=== PATIENT | female | born 1950 | race Caucasian/White ===

== ENCOUNTER 2025-03-02 09:41 | Day surgery (SDC) | payer MEDICARE, SELFPAY ==
--- NOTE | 2025-02-12 13:38 | CM ---
Demographics: confirmed
Living situation: lives alone
Support Person Post Operatively: Friend lives close by and will be available for assistance, patient's daughter will not be available.
History of
VN: no
SNF: no
Outpatient: [facility] scheduled for 03/04, patient hired a delivery route driver to assist with PT appointments
Has patient purchased required equipment: yes, walker x's 2
PCP: confirmed
Pharmacy: [facility]
Post Operative Discharge Plan: Plan for home, with friend, Outpatient PT.
[2025-02-16 11:56] LABS: Hematocrit 37.9 % (37.0-47.0); Hemoglobin 12.3 g/dL (12.0-16.0); Mean Corp Hgb Conc. 32.5 g/dL (33.0-37.0); Mean Corpuscular Volume 85.7 fL (81.0-99.0); Platelet Count 263 10^3/uL (130-400); Red Cell Dist. Width 14.7 % (11.5-14.5)
[2025-02-16 12:11] LABS: Glycohemoglobin (HgbA1c) 5.4 % (4.0-5.9)
[2025-02-16 12:28] LABS: ALT (SGPT) 14 U/L (0-35); AST (SGOT) 17 U/L (14-36); Albumin 4.3 g/dl (3.5-5.0); Alkaline Phosphatase 62 U/L (38-126); Blood Urea Nitrogen 27 mg/dl (7-17); Calcium 9.4 mg/dl (8.4-10.2); Carbon Dioxide 24 mmol/L (22-30); Chloride 107 mmol/L (98-107); Glucose 89 mg/dl (70-99); Potassium 4.8 mmol/L (3.5-5.1); Sodium 137 mmol/L (135-145); Total Protein 7.7 g/dl (6.3-8.2); eGFR > 60.00
[2025-02-16 13:50] VITALS: BMI 35.8
[2025-02-17 09:35] VITALS: BMI 35.8
[2025-02-26 09:22] VITALS: BMI 35.8
[2025-03-02] VITALS (15 sets, daily range): BP systolic 133–177; BP diastolic 57–99; PULSE 61; BMI 35.8
--- NOTE | 2025-03-02 09:09 | W.PN.UPDATE ---
Addendum entered and electronically signed by Kelly Ceballos PA-C 03/02/25 14:35:
Of note, patient is an early d/c candidate for 03/03/25
Original Note:
Update Note
Progress Note Update
R knee OA s/p R TKA w/ Dr Maier 03/02/25
- s/p L TKA, 2023, by Dr Fredrick Cee
DVT prophylaxis - ASA, b/l venous foot pumps
HTN - diet controlled - monitor BP
Pulmonary nodules
BOBBY, improving with intentional weight loss
Chronic dyspnea on exertion
- Of note, recent NST stable
- Monitor O2
- IS
- Decadron to aid in lung perfusion
- Add supplemental O2 HS
NIDDM per records, A1c 5.4 - monitor BS
- Will add SSI AC, low dose Lantus HS to accommodate for potential BS elevations while on Decadron for post-surgical inflammation (benefit of med outweighs risk)
- Diabetic carb controlled diet
- Will benefit from prophylactic abx upon d/c
GERD and previous gastric and duodenal ulcer - minimize NSAIDs
- Continue home Protonix, Pepcid
Ambulatory dysfunction with balance difficulties - on fall precautions
Peripheral neuropathy - add Gabapentin HS
Iron deficiency anemia - pre-op hgb stable - non-invasive hgb in AM
Hyperlipidemia
Mild LVH
Heart murmur associated w/ mild valvular disease
Chronic peripheral edema
Fatty liver disease
Status post gastric sleeve 2014
Vertigo
Degenerative disc disease with chronic low back pain
Raynaud's disease
Osteopenia
Vitamin D deficiency
Obesity, BMI 35.8
[2025-03-02] MEDS: CELEBREX 200 MG PO (10:19)
[2025-03-02] MEDS: TYLENOL 650 MG PO ×3 (10:19→19:30)
[2025-03-02] MEDS: NORMOSOL-R/PLASMALYTE-A 1000 IV ×2 (10:31→16:24)
[2025-03-02] MEDS: PROTONIX 40 MG PO (16:52)
[2025-03-02] MEDS: PEPCID 20 MG PO (16:52)
[2025-03-02] MEDS: NOVOLOG FLEXPEN-MODERATE RESISTANCE SC ×2 (16:52→17:34)
[2025-03-02] MEDS: ASPIRIN 325 MG PO (17:06)
--- NOTE | 2025-03-02 17:15 | PTCARENOTE ---
Pt arrived to [facility] s/p R TKA with spinal and block. Pt with numbness and decreased sensation to b/l Lower extremities. Right knee dressing with scant sanguineous drainage. Thigh high teds/ foot pumps on pt. Admission questions answered. Bed locked
ad in lowest position. Care ongoing.
[2025-03-02 17:28] LABS: Glucose - Point of Care 93 mg/dl (70-99)
[2025-03-02] MEDS: DECADRON 4 MG PO (19:30)
[2025-03-02] MEDS: COLACE 100 MG PO (19:30)
[2025-03-02] MEDS: ANCEF 5 IV (19:30)
[2025-03-02] MEDS: FLORASTOR 250 MG PO (19:30)
[2025-03-02] MEDS: SENOKOT 17.2 MG PO (19:31)
[2025-03-02] MEDS: BACTROBAN 2% OINTMENT 1 APPLIC NASAL (19:32)
[2025-03-02] MEDS: MAALOX 30 ML PO (20:00)
[2025-03-02 21:30] LABS: Glucose - Point of Care 270 mg/dl (70-99)
[2025-03-02] MEDS: LANTUS 0.05 UNITS SC (21:57)
[2025-03-02] MEDS: NEURONTIN 300 MG PO (21:57)
[2025-03-03] MEDS: TYLENOL PO (00:04)
[2025-03-03 03:33] VITALS: BP 116/72
[2025-03-03] MEDS: ANCEF 5 IV (04:27)
[2025-03-03] MEDS: TYLENOL 650 MG PO ×2 (04:28→08:00)
[2025-03-03] MEDS: ROXICODONE 5 MG PO (06:03)
[2025-03-03 07:00] VITALS: BP 146/79
[2025-03-03 07:41] LABS: Glucose - Point of Care 216 mg/dl (70-99)
[2025-03-03] MEDS: PEPCID 20 MG PO (07:59)
[2025-03-03] MEDS: SENOKOT 17.2 MG PO (07:59)
[2025-03-03] MEDS: COLACE 100 MG PO (07:59)
[2025-03-03] MEDS: FLORASTOR 250 MG PO (08:00)
[2025-03-03] MEDS: ASPIRIN 325 MG PO (08:00)
[2025-03-03] MEDS: DECADRON 4 MG PO (08:00)
[2025-03-03] MEDS: BACTROBAN 2% OINTMENT 1 APPLIC NASAL (08:00)
[2025-03-03] MEDS: PROTONIX 40 MG PO (08:00)
[2025-03-03 08:46] VITALS: BP 146/79; BP 161/89; PULSE 82
--- NOTE | 2025-03-03 08:58 | CM ---
it project manager met with patient this am and reviewed discharge plan, patient lives alone and insists on returning to home alone, patient has a friend who will help her after discharge, patient's daughter has offered for patient to stay with her but
patient declined.
Plan is for patient to return to home and follow up with outpatient therapies at [facility], patient has hired her own transportation to outpatient rehab.
Home today outpatient therapy at [facility]
--- NOTE | 2025-03-03 09:28 | W.PN.ORTHO ---
Today's Communication / Plan
-
Pt did well w/ both PT and OT overall.
Will d/c this AM given clinical stability.
Assessment
.
Distal Motor Intact: Yes
Dressing:
Small areas of old bleeding along incision line.
Assessment:
R knee OA s/p R TKA w/ Dr Maier 03/02/25
- s/p L TKA, 2023, by Dr Fredrick Cee
- EARLY D/C
DVT prophylaxis - ASA, b/l venous foot pumps
HTN - diet controlled - BPs overall stable during admission
- Ensured adequate pain control to avoid significant BP elevations
Pulmonary nodules
BOBBY, improving with intentional weight loss
Chronic dyspnea on exertion
- Of note, recent NST stable
- O2 stable on RA w/ measures below
- IS
- Decadron to aid in lung perfusion
- Added supplemental O2 HS
NIDDM per records, A1c 5.4 - BS readings mildly elevated d/t surgical stress and steroid use. BS readings expected to improve w/ continuation of diabetic, carb controlled diet
- Did add SSI AC, low dose Lantus HS during admission to accommodate for potential BS elevations while on Decadron for post-surgical inflammation (benefit of med outweighs risk)
- Will benefit from prophylactic abx upon d/c
GERD and previous gastric and duodenal ulcer - minimize NSAIDs
- Continue home Protonix, Pepcid
Ambulatory dysfunction with balance difficulties - on fall precautions
Peripheral neuropathy - added Gabapentin HS
Iron deficiency anemia - pre-op hgb stable - non-invasive hgb 12.8 POD 1
Hyperlipidemia
Mild LVH
Heart murmur associated w/ mild valvular disease
Chronic peripheral edema
Fatty liver disease
Status post gastric sleeve 2014
Vertigo
Degenerative disc disease with chronic low back pain
Raynaud's disease
Osteopenia
Vitamin D deficiency
Obesity, BMI 35.8
Plan
.
Surgery / Date: R TKA w/ Dr Maier 03/02/25
DVT Prophylaxis: Aspirin
Activity:
Out of bed.
PT/OT
Discharge Plan: Home w/ Outpatient PT
Subjective
.
.:
Patient resting comfortably in her chair.
R knee pain well controlled w/ current pain meds.
Denies any new significant complaints.
Eager for potential d/c today.
Vital Signs and Labs
.
Vital Signs and Labs:
Lab Results
02/16/25 11:24
02/16/25 11:24
Temp Pulse Resp BP Pulse Ox
98.4 F 82 16 146/79 94
03/03/25 07:00 03/03/25 07:00 03/03/25 07:00 03/03/25 07:00 03/03/25 07:00
Non-invasive Hgb result: 12.8
Physical Exam
-
HEENT: No pallor, cyanosis, or jaundice. Throat clear.
NECK: Supple. No JVD.
RESPIRATORY: Lungs clear to auscultation.
CVS: S1, S2 normal. RRR.�
ABDOMEN: Soft, non-tender. No distension.
EXTREMITIES: Expected post-surgical R knee edema. Strength equal, no calf pain with palpation/dorsiflexion. Calves soft.
DIETICIAN: AOx3. No focal deficits. information and data architect analyst grossly intact
[2025-03-03 09:32] VITALS: BP 161/89; PULSE 85
--- NOTE | 2025-03-03 09:37 | W.DS.TRANS ---
DC Summary - Regulatory Manager
-
Discharge Instructions:
Discharge Diagnosis/Procedures R knee OA s/p R TKA w/ Dr Maier 03/02/25
Diet Diabetic, Carb Controlled
Additional Diets Adequate hydration, minimize opioids, and wear
TEDs stockings to prevent low blood pressure/
dizziness.
Activity As tolerated,With Walker
Driving Restrictions Not until seen by your Dr
Bathing Restrictions OK to Shower
Other Services PT
Wound Care Dressing to be removed 1 week post-surgery.
Ricci to be removed at 2 week follow-up with
surgeon's office.
Instructions:
Stand-Alone Forms: Total Hip/Knee Replacement D/C
Changes to Home Medications: Yes
Discharge Medications:
DC Medications w/original date entered in [employer]
famotidine 20 mg tablet 20 mg PO DAILY Gastrointestinal Issue 02/12/25
pantoprazole 40 mg tablet,delayed release 40 mg PO DAILY Gastrointestinal Issue 02/12/25
mupirocin 2 % topical ointment 1 applic intranasal BID #1 tube 02/16/25
cefadroxil 500 mg capsule 500 mg PO BID #14 caps 02/25/25
dexamethasone 4 mg tablet 4 mg PO BID Anti-inflammatory #5 tabs 02/25/25
gabapentin 300 mg capsule 300 mg PO HS neuropathic pain/sleep #10 caps 02/25/25
ondansetron HCl 4 mg tablet 4 mg PO Q6H PRN nausea and vomiting #30 tabs 02/25/25
oxycodone 5 mg tablet 5 - 10 mg (1 - 2 x 5 mg) PO Q6H PRN moderate-severe pain #30 tabs 02/25/25
omeprazole 40 mg capsule,delayed release 40 mg PO DAILY Gastrointestinal Issue 03/02/25
Saccharomyces boulardii 250 mg capsule (Florastor) 250 mg PO BID #14 caps 03/03/25
acetaminophen 650 mg tablet,extended release 1,300 mg (2 x 650 mg) PO Q8H #60 tabs 03/03/25
aspirin 325 mg tablet 325 mg PO DAILY #60 tabs 03/03/25
docusate sodium 100 mg capsule 100 mg PO BID #30 caps 03/03/25
magnesium hydroxide 400 mg/5 mL oral suspension (Milk of Magnesia) 30 ml PO HS PRN constipation #3,780 mL 03/03/25
sennosides 8.6 mg tablet (Corinna-vanna) 17.2 mg (2 x 8.6 mg) PO BID #30 tabs 03/03/25
Home Medication Changes
cefadroxil 500 mg capsule 500 mg PO BID #14 caps 02/25/25
dexamethasone 4 mg tablet 4 mg PO BID Anti-inflammatory #5 tabs 02/25/25
gabapentin 300 mg capsule 300 mg PO HS neuropathic pain/sleep #10 caps 02/25/25
ondansetron HCl 4 mg tablet 4 mg PO Q6H PRN nausea and vomiting #30 tabs 02/25/25
oxycodone 5 mg tablet 5 - 10 mg (1 - 2 x 5 mg) PO Q6H PRN moderate-severe pain #30 tabs 02/25/25
omeprazole 40 mg capsule,delayed release 40 mg PO DAILY Gastrointestinal Issue 03/02/25
Saccharomyces boulardii 250 mg capsule (Florastor) 250 mg PO BID #14 caps 03/03/25
acetaminophen 650 mg tablet,extended release 1,300 mg (2 x 650 mg) PO Q8H #60 tabs 03/03/25
aspirin 325 mg tablet 325 mg PO DAILY #60 tabs 03/03/25
docusate sodium 100 mg capsule 100 mg PO BID #30 caps 03/03/25
magnesium hydroxide 400 mg/5 mL oral suspension (Milk of Magnesia) 30 ml PO HS PRN constipation #3,780 mL 03/03/25
sennosides 8.6 mg tablet (Corinna-vanna) 17.2 mg (2 x 8.6 mg) PO BID #30 tabs 03/03/25
Pending Results: No
[2025-03-03] MEDS: NOVOLOG FLEXPEN-MODERATE RESISTANCE 3 UNITS SC (10:29)
[2025-03-03 11:00] VITALS: BP 140/93
== END 2025-03-03 11:23 | disposition home or self-care (01) ==
LOC: SDS 09:41
PROVIDERS: ATTENDING PHYSICIAN Specialist; FAMILY PHYSICIAN Internal Medicine; OTHER PHYSICIAN Physician Assistant; REFERRING PHYSICIAN Internal Medicine Cardiovascular Disease
DX: M17.11 Unilateral primary osteoarthritis, right knee (principal); E66.9 Obesity, unspecified; Z68.35 Body mass index [BMI] 35.0-35.9, adult; I10 Essential (primary) hypertension; R91.8 Other nonspecific abnormal finding of lung field; G47.33 Obstructive sleep apnea (adult) (pediatric); K21.9 Gastro-esophageal reflux disease without esophagitis; E11.42 Type 2 diabetes mellitus with diabetic polyneuropathy; D50.9 Iron deficiency anemia, unspecified
CPT/HCPCS: 27447; 36415; 73560; 80053; 82962; 83036; 85027; 87070; 97110; 97116; 97162; 97166; 97535; C1713; C1776

== ENCOUNTER 2025-03-11 06:38 | Outpatient (RCR) | payer MEDICARE, SELFPAY | END 2025-03-11 23:59 | disposition home or self-care (01) | LOC: RPT 06:38 | PROVIDERS: ATTENDING PHYSICIAN Specialist; FAMILY PHYSICIAN Internal Medicine | DX: Z47.1 Aftercare following joint replacement surgery (principal); Z73.6 Limitation of activities due to disability; R26.2 Difficulty in walking, not elsewhere classified; M62.81 Muscle weakness (generalized); M25.561 Pain in right knee; R26.89 Other abnormalities of gait and mobility; Z96.653 Presence of artificial knee joint, bilateral | CPT/HCPCS: 97110; 97140; 97162; 97530 ==

== ENCOUNTER 2025-04-15 07:27 | Outpatient (RCR) | payer MEDICARE, SELFPAY | END 2025-04-15 23:59 | disposition home or self-care (01) | LOC: RPT 07:27 | PROVIDERS: ATTENDING PHYSICIAN Specialist; FAMILY PHYSICIAN Internal Medicine | DX: Z47.1 Aftercare following joint replacement surgery (principal); Z73.6 Limitation of activities due to disability; R26.2 Difficulty in walking, not elsewhere classified; M62.81 Muscle weakness (generalized); M25.561 Pain in right knee; R26.89 Other abnormalities of gait and mobility; Z96.653 Presence of artificial knee joint, bilateral | CPT/HCPCS: 97110; 97112; 97530 ==